=== PATIENT | female | born 1990 | race Caucasian/White ===

== ENCOUNTER 2017-09-09 16:34 | Emergency (ER) | payer OTHER ==
--- NOTE | 2017-09-09 19:10 | ED ---
Skin Complaint - HPI Summary HPI Summary: [id number] patient here with tip of left thumb injury while using a knife at work today. She reports she actually cut the tip of her thumb which is bleeding quite a bit however it stops and she's been here. She denies numbness, tingling, weakness. Immunizations are up-to-date. No pain complaints at this time. - History of Current Complaint Chief Complaint: EDLacSutureRecheck Time Seen by Provider: 09/09/17 17:52 Stated Complaint: LT THUMB LACERATION Hx Obtained From: Patient Pain Intensity: 0 - Allergy/Home Medications Allergies/Adverse Reactions: Allergies Allergy/AdvReac Type Severity Reaction Status Date / Time No Known Allergies Allergy Verified 09/09/17 16:55 PMH/Surg Hx/FS Hx/Imm Hx Previously Healthy: Yes Endocrine/Hematology History: Denies: Hx Anticoagulant Therapy, Hx Blood Disorders, Autoimmune Disease - Immunization History Immunizations Up to Date: Yes Infectious Disease History: No Infectious Disease History: Denies: Hx of Known/Suspected MRSA, Traveled Outside the in Last 30 Days - Social History 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 Alcohol Use: Occasionally Hx Substance Use: No Substance Use Type: Reports: None Hx Tobacco Use: No Smoking Status (MU): Never Smoked Tobacco Review of Systems Positive: no symptoms reported Musculoskeletal: Negative Skin: Other - lac Neurological: Negative Psychological: Normal All Other Systems Reviewed And Are Negative: Yes Physical Exam Triage Information Reviewed: Yes Vital Signs On Initial Exam: Initial Vitals Temp Pulse Resp BP Pulse Ox 97.5 F 65 17 107/60 100 09/09/17 16:48 09/09/17 16:48 09/09/17 16:48 09/09/17 16:48 09/09/17 16:48 Vital Signs Reviewed: Yes Appearance: Positive: Well-Appearing, No Pain Distress, Well-Nourished Skin: Positive: Warm, Skin Color Reflects Adequate Perfusion, Dry - lac over tip of Lt thumb closed w/ dried blood Head/Face: Positive: Normal Head/Face Inspection Eyes: Positive: EOMI ENT: Positive: Hearing grossly normal Respiratory/Lung Sounds: Positive: Breath Sounds Present Cardiovascular: Positive: Pulses are Symmetrical in both Upper and Lower Extremities Musculoskeletal: Positive: Normal, Strength/ROM Intact Neurological: Positive: Normal, Sensory/Motor Intact, Alert, Oriented to Person Place, Time, CN Intact II-III Psychiatric: Positive: Normal Diagnostics - Vital Signs Vital Signs Temp Pulse Resp BP Pulse Ox 09/09/17 16:48 97.5 F 65 17 107/60 100 - Laboratory Lab Statement: Any lab studies that have been ordered have been reviewed, and results considered in the medical decision making process. Course/Dx - Course Course Of Treatment: Soaked finger in a water and Hibiclens solution for about 10-15 minutes. Upon removing thumb, her laceration cannot be really opened at the start he started to heal. This appears to be fairly clean and so will be tried, closed with triple antibiotic ointment and a bandage. She may continue to soak this daily and cover her wound until it heals. She is aware of danger signs and symptoms of infection to watch for and will contact her medical provider if this occurs. - Diagnoses Provider Diagnoses: Laceration of left thumb Discharge - Sign-Out/Discharge Documenting (check all that apply): Patient Departure - Discharge Plan Condition: Stable Disposition: HOME Patient Education Materials: Finger Laceration (ED) Referrals: [facility] [Outside] Additional Instructions: Gently wash wound with soap and water, rinse well and pat dry with clean cloth. Reapply triple antibiotic ointment and clean gauze dressing. You may also soak once a day with soapy water. Continue this daily until wound heals. Call your PCP to schedule wound recheck if it's not healing well. You may also rest, ice and elevate for pain/swelling as well as take ibuprofen with food. * If you develop redness, swelling, streaking, purulent drainage, fevers or chills, seek medical attention sooner or return to the emergency department. - Billing Disposition and Condition Condition: STABLE Disposition: Home
[2017-09-09 20:04] VITALS: BP 115/68
== END 2017-09-09 20:05 | disposition home or self-care (01) ==
LOC: ED 16:34
DX: S61.012A Laceration without foreign body of left thumb without damage to nail, initial encounter (principal); W26.0XXA Contact with knife, initial encounter; Y92.9 Unspecified place or not applicable
CPT/HCPCS: 99282

== ENCOUNTER 2018-01-24 10:00 | Emergency (ER) | payer OTHER ==
--- NOTE | 2018-01-24 10:12 | ED ---
Lower Extremity - HPI Summary HPI Summary: Patient is a 27-year-old female who presents emergency department for a left knee injury that occurred yesterday while playing soccer. Patient states she was running and somehow twisted her left knee. She is not sure exactly what happened but felt a pop and immediate pain. She denies numbness, tingling or weakness. Symptoms are mild in severity. Is able to ambulate with pain. No cervical past medical history. - History of Current Complaint Chief Complaint: EDExtremityLower Stated Complaint: LEFT KNEE INJURY Time Seen by Provider: 01/24/18 10:11 Hx Obtained From: Patient Pain Intensity: 0 - Allergies/Home Medications Allergies/Adverse Reactions: Allergies Allergy/AdvReac Type Severity Reaction Status Date / Time No Known Allergies Allergy Verified 01/24/18 10:05 Home Medications: Home Medications NK [No Home Medications Reported] 01/24/18 [History Confirmed 01/24/18] PMH/Surg Hx/FS Hx/Imm Hx Previously Healthy: Yes Endocrine/Hematology History: Denies: Hx Anticoagulant Therapy, Hx Blood Disorders Infectious Disease History: No Infectious Disease History: Denies: Hx of Known/Suspected MRSA, Traveled Outside the [place] in Last 30 Days - Family History Known Family History: Positive: Non-Contributory - Social History Occupation: Employed Full-time Lives: Alone Alcohol Use: Occasionally Hx Substance Use: No Substance Use Type: Reports: None Hx Tobacco Use: No Smoking Status (MU): Never Smoked Tobacco Review of Systems Positive: Other - Left knee pain Negative: Weakness, Paresthesia, Numbness All Other Systems Reviewed And Are Negative: Yes Physical Exam Triage Information Reviewed: Yes Vital Signs On Initial Exam: Initial Vitals Temp Pulse Resp BP Pulse Ox 98.1 F 82 15 119/76 99 01/24/18 10:02 01/24/18 10:02 01/24/18 10:02 01/24/18 10:02 01/24/18 10:02 Vital Signs Reviewed: Yes Appearance: Positive: Well-Appearing - Pt. lying in bed in NAD. Drinking coffee. Skin: Positive: Warm, Dry Head/Face: Positive: Normal Head/Face Inspection Eyes: Positive: Normal, EOMI Neck: Positive: Supple Musculoskeletal: Positive: Other - Mild pain on palpation of the medial aspect of the left knee. No increase in laxity. Full ROM with flexion and extension. No erythema or increased warmth. No significant effusion. Can extend at knee. Good pedial pulse. Neurological: Positive: Normal, CN Intact II-III Psychiatric: Positive: Affect/Mood Appropriate Procedures - Splinting Left Lower Extremity Pre-Made Type: knee immobilizer Pre-Proc Neuro Vasc Exam: normal Post-Proc Neuro Vasc Exam: normal Diagnostics - Vital Signs Vital Signs Temp Pulse Resp BP Pulse Ox 01/24/18 10:02 98.1 F 82 15 119/76 99 - Laboratory Lab Statement: Any lab studies that have been ordered have been reviewed, and results considered in the medical decision making process. Lower Extremity Course/Dx - Course Course Of Treatment: Patient presenting with left knee injury. Exam is relatively unremarkable. Patient with difficulty ambulating. Knee x-ray is negative for acute findings, reading per radiology. Given injury and patient's pain will apply a knee immobilizer and crutches. Advised to ice and elevate. Insets for pain as directed. Advised to avoid soccer until pain resolves. She is given information for orthopedics for follow-up if pain persists. Patient understands and agrees with plan. - Diagnoses Differential Diagnosis/HQI/PQRI: Positive: Arthritis, Contusion, Fracture ( Closed), Sprain, Strain Provider Diagnoses: Knee sprain Discharge - Sign-Out/Discharge Documenting (check all that apply): Patient Departure - Discharge Plan Condition: Good Disposition: HOME Patient Education Materials: Knee Sprain (ED) Referrals: [facility] [Outside] Alex Schwartz MD [Medical Doctor] - Additional Instructions: Schedule a follow up appointment with orthopedics if pain persist Ice and elevate intermittently Ibuprofen as directed for pain Avoid soccer until pain resolves Return to ER if symptoms change or worsen - Billing Disposition and Condition Condition: GOOD Disposition: Home
[2018-01-24 12:14] VITALS: BP 0/0
== END 2018-01-24 12:13 | disposition home or self-care (01) ==
LOC: ED 10:00
DX: S83.92XA Sprain of unspecified site of left knee, initial encounter (principal); X50.1XXA Overexertion from prolonged static or awkward postures, initial encounter; Y93.66 Activity, soccer; Y92.39 Other specified sports and athletic area as the place of occurrence of the external cause
CPT/HCPCS: 99282